=== PATIENT | female | born 2000 ===

== ENCOUNTER 2021-01-24 10:43 | Inpatient (IN) | payer OTHER ==
[2021-01-24] MEDS ORDERED: LACTATED RINGERS 1,000 ML ONE (11:24)
[2021-01-24] MEDS ORDERED: LACTATED RINGERS 1,000 ML IV SCH ×2 (11:30→14:30)
--- NOTE | 2021-01-24 13:13 | Ultrasound Report ---
ULTRASOUND OBSTETRIC INDICATION: Evaluate well-being. Clinical Gestational Age (GA): 39 weeks, 1 day TECHNIQUE: Transabdominal. COMPARISON: None available. FINDINGS: There is a single intrauterine . Biparietal Diameter = 8.8 cm = 35 weeks, 2 day(s). Head Circumference = 32.4 cm = 36 weeks, 5 day(s). Abdominal Circumference = 31.8 cm = 35 weeks, 5 day(s). Femur Length = 7.0 cm = 35 weeks, 5 day(s). Average Ultrasound Age (AUA) = 35 weeks, 6 day(s). Heart Rate: 137 beats per minute. Estimated Weight in grams (if calculated): 2760 Estimated Weight Growth Percentile (if calculated): 83 Position: cephalic. Cervix: closed. Length in cm (if measured): Not measured Placenta: maternal left and free of the os. Amniotic Fluid Volume: decreased Amniotic Fluid Index (REAGAN) in cm (if calculated): 3.9. Maternal Adnexa: No significant abnormality. IMPRESSION: 1. Single, living intrauterine with estimated sonographic age of 35 weeks, 6 day(s). 2. Decreased amniotic fluid volume with an REAGAN of 3.9 cm. Signer Name: Grant Smith MD Signed: 01/24/2021 1:09 PM Workstation Name: [id number]
[2021-01-24 13:54] LABS: Basophils # (Auto) 0.1 K/mm3 (0.0-0.1); Basophils % (Auto) 0.5 % (0.0-1.8); Eosinophils # (Auto) 0.1 K/mm3 (0.0-0.4); Eosinophils % (Auto) 0.6 % (0.0-4.3); Hematocrit 35.8 % (30.3-42.9); Hemoglobin 12.7 gm/dl (10.1-14.3); Lymphocytes # (Auto) 2.2 K/mm3 (1.2-5.4); Lymphocytes % (Auto) 17.7 % (13.4-35.0); Mean Corpuscular HGB Conc 35 % (30-34); Mean Corpuscular Volume 86 fl (79-97); Monocytes # (Auto) 0.8 K/mm3 (0.0-0.8); Monocytes % (Auto) 6.2 % (0.0-7.3); Red Blood Count 4.15 M/mm3 (3.65-5.03); Red Cell Distribution Width 13.4 % (13.2-15.2)
[2021-01-24 13:59] LABS: Bacteria,Urine 1+ /HPF (Negative); Bilirubin,Urine NEG (Negative); Blood,Urine MOD (Negative); Color,Urine Amber (Yellow); Mucus,Urine 1+ /HPF
[2021-01-24 14:06] LABS: Amphetamine Screen,Urine Negative; Benzodiazepines Screen,Urine Negative; Cannabinoid Screen,Urine Negative; Cocaine Screen,Urine Negative; Methadone Screen,Urine Negative; Opiate Screen,Urine Negative
[2021-01-24] MEDS ORDERED: ACETAMINOPHEN 325 MG TAB PO PRN (14:21)
[2021-01-24] MEDS ORDERED: ALUM-MAG HYDROXIDE-SIMETHICONE 200-200-20MG/5ML ORAL LIQD 30 ML PO PRN (14:21)
[2021-01-24] MEDS ORDERED: ONDANSETRON 4 MG/2 ML INJ IV PRN (14:21)
[2021-01-24] MEDS ORDERED: diphenhydrAMINE 25 MG CAP PO PRN (14:21)
[2021-01-24] MEDS ORDERED: MAGNESIUM HYDROXIDE (MOM) ORAL LIQD UDC PO PRN (14:21)
[2021-01-24] MEDS ORDERED: SIMETHICONE 80 MG CHEW TAB PO PRN (14:21)
[2021-01-24] MEDS ORDERED: WITCH HAZEL/ GLYCERIN PAD TP PRN (14:21)
[2021-01-24] MEDS ORDERED: DOCUSATE SODIUM 100 MG CAP PO PRN (14:21)
[2021-01-24 14:23] LABS: Hepatitis C Virus Antibody Non-Reactive (NonReactive)
--- NOTE | 2021-01-24 14:31 | History and Physical Report ---
History of Present Illness Date of examination: 01/24/21 Date of admission: 01/24/2021 Chief complaint: contractions and "piquito" leakage of clear fluid @8pm last night History of present illness: Pt presents with reports of unremarkeable care course and labs obtained in [place]; no records. Denies medical, OBGYN, and surgical history. Denies current allergies and home medications Past History Past Medical History: no pertinent history Past Surgical History: no surgical history Family/Genetic History: none Social history: other (portuguese speaking only, moved from [facility], no care in [place]) - Obstetrical History Expected Date of Delivery: 01/30/21 Actual Gestation: 39 Week(s) 1 Day(s) : 1 Para: 0 Hx # Term Pregnancies: 0 Number of Pregnancies: 0 Spontaneous Abortions: 0 Induced : 0 Number of Living Children: 0 Medications and Allergies Allergies Allergy/AdvReac Type Severity Reaction Status Date / Time No Known Allergies Allergy Verified 01/24/21 11:05 Home Medications Medication Instructions Recorded Confirmed Last Taken Type No Known Home Medications [No 01/24/21 01/24/21 Unknown History Reported Home Medications] Active Meds: Active Medications Lactated Ringer's (Lactated Ringers) 1,000 mls @ 999 mls/hr IV DIRECT ANTONELLA Last Admin: 01/24/21 11:31 Dose: 999 mls/hr Documented by: Review of Systems Genitourinary: leakage of fluid, contractions - Vital Signs Vital signs: Vital Signs Temp Pulse Resp BP 98.0 F 82 14 124/79 01/24/21 11:10 01/24/21 11:10 01/24/21 11:10 01/24/21 11:10 Temp Pulse Resp BP Pulse Ox 98.0 F 74 14 116/76 01/24/21 11:10 01/24/21 14:10 01/24/21 11:10 01/24/21 14:10 - Physical Exam Breasts: Positive: deferred Cardiovascular: Regular rate Lungs: Positive: Normal air movement Abdomen: Positive: normal appearance, soft Genitourinary (Female): Positive: normal external genitalia, normal perenium Vulva: both: normal Vagina: Positive: normal moisture Uterus: Positive: normal size, normal contour Anus/Rectum: Positive: normal perianal skin Extremities: Positive: normal - Obstetrical FHR: auscultation normal, category 1 Uterine Contraction Monitor Mode: External Cervical Dilatation: 2 (per Ghada MEEKS) Cervical Effacement Percentage: 60 station: -2 Uterine Contraction Pattern: Irregular Uterine Tone Measurement Phase: Resting Results Result Diagrams: 01/24/21 13:35 Abnormal lab results 01/24/21 01/24/21 Range/Units 13:35 13:43 WBC 12.2 H (4.5-11.0) K/mm3 MCHC 35 H (30-34) % Seg Neutrophils % 75.0 H (40.0-70.0) % Seg Neutrophils # 9.2 H (1.8-7.7) K/mm3 Urine WBC (Auto) 60.0 H (0.0-6.0) /HPF U Epithel Cells (Auto) 29.0 H (0-13.0) /HPF All other labs normal. Ultrasound: report reviewed Assessment and Plan Pt presents to triage with c/o contractions and LOF x1 gush clear fluid small "piquito" amount per pt @8pm on 01/23/21. CAT 1 FHT's with irregular contractions, SVE 2/60/-2, ROM plus negative, REAGAN 3.9cm and EGA 35w6d per US today for EDC of 02/22/21. Pt reports LMP 04/11/2020. Per pt- EDC 01/30/21 based off an ultrasound in [place] at about [address] Garcia made aware. Orders placed for observation. - Patient Problems (1) Oligohydramnios Current Visit: Yes Status: Acute (2) care insufficient Current Visit: Yes Status: Acute
[2021-01-24] MEDS ORDERED: PRENATAL VIT27-FE FUMARATE-FOLIC ACID VIT TAB PO SCH (15:00)
[2021-01-24 15:22] LABS: Platelet Count 154 K/mm3 (140-440)
[2021-01-24] MEDS ORDERED: NalbUPHINE 10 MG/1 ML INJ IV ONE (22:45)
--- NOTE | 2021-01-25 04:46 | Event Note ---
Date: 01/25/21 CNM called to bedside. Per RN report, significant change in SVE noted to 8cm. Order placed for GBS prophylaxis d/t unknown GBS result and pt in active labor. Pt reporting urge to push and SVE now 9.5/100%/+1. NICU team called for delivery
[2021-01-25] MEDS ORDERED: OXYTOCIN DRIP 30,000 MILLIUNITS/500 ML BAG IV ONE ×2 (05:17→15:21)
[2021-01-25] MEDS ORDERED: AMPICILLIN/NS 2 GM/100 ML 2 GM/100 ML BAG IV ONE (05:17)
[2021-01-25] MEDS ORDERED: LIDOCAINE (2%) 20 MG/1 ML VIAL 20 ML MDV INFILTRATI ONE (05:18)
[2021-01-25] MEDS ORDERED: MINERAL OIL 30 ML ORAL LIQD ONE (05:18)
[2021-01-25] MEDS ORDERED: OXYTOCIN 10 UNIT/1 ML INJ ONE (06:12)
--- NOTE | 2021-01-25 07:17 | Procedure Note ---
OB Delivery Note - Delivery Date of Delivery: 01/25/21 [employer]: RIVERA LEE Estimated blood loss: <100cc - Vaginal Delivery presentation: vertex Delivery position: OP Intrapartum events: no care (insufficient care) Delivery induction: none Delivery monitor: external FHT, external uterine Route of delivery: Delivery placenta: spontaneous Delivery cord: 3 umbilical vessels Episiotomy: none Delivery laceration: 2nd degree Delivery repair: vicryl Anesthesia: local Delivery comments: NELSY present for delivery Counts correct x2 Viable female delivered over intact perineum and given to SIZING SPONGER on mother's abdomen. 3 vessel umbilical cord immediately clamped and cut. Placenta delivered spontaneously and intact. IV not infusing per RN; Pitocin IM given. 2nd degree laceration repaired in usual fashion. EBL <100mL. Fundus firm 1 fingerbreadth below umbilicus with scant vaginal bleeding at this time. Pericare done. Mother left LDR stable. intubated and transported to NICU. - Infant A at 1 minute: 1 at 5 minutes: 6 (10 minute = 8) Infant Gender: Female (2951g)
[2021-01-25] MEDS ORDERED: MAGNESIUM HYDROXIDE (MOM) ORAL LIQD UDC PO PRN (10:06)
[2021-01-25] MEDS ORDERED: WITCH HAZEL/ GLYCERIN PAD TP PRN (10:06)
[2021-01-25] MEDS ORDERED: PROMETHAZINE 25 MG TAB PO PRN (10:06)
[2021-01-25] MEDS ORDERED: LANOLIN/ZINC/DIMETHICONE (LANSINOH) 7 GM TP PRN (10:06)
[2021-01-25] MEDS ORDERED: oxyCODONE /ACETAMINOPHEN 5-325MG TAB PO PRN (10:06)
[2021-01-25] MEDS ORDERED: BENZOCAINE/MENTHOL 20/0.5% TOP SPRAY 56 GM TP PRN (10:06)
[2021-01-25] MEDS ORDERED: ONDANSETRON 4 MG/2 ML INJ IV PRN (10:06)
[2021-01-25] MEDS ORDERED: ACETAMINOPHEN 325 MG TAB PO PRN (10:06)
[2021-01-25] MEDS ORDERED: diphenhydrAMINE 25 MG CAP PO PRN (10:06)
[2021-01-25] MEDS: PRENATAL VIT27-FE FUMARATE-FOLIC ACID VIT TAB PO SCH (12:37)
[2021-01-25] MEDS: DOCUSATE SODIUM 100 MG CAP PO SCH ×2 (12:37→23:30)
[2021-01-25] MEDS: IBUPROFEN 600 MG TAB PO SCH ×3 (12:37→23:30)
[2021-01-25] MEDS ORDERED: LACTATED RINGERS 2,000 ML ONE (13:42)
[2021-01-25] MEDS ORDERED: AMMONIA INHALANT IH ONE (15:04)
[2021-01-25] MEDS ORDERED: miSOPROStol 200 MCG TAB ONE (15:21)
[2021-01-25] MEDS ORDERED: METHYLERGONOVINE MALEATE 0.2 MG/ML VIAL IM ONE ×2 (15:32→16:23)
[2021-01-25] MEDS ORDERED: OXYTOCIN DRIP 30 UNITS/500 ML BAG IV SCH (16:00)
[2021-01-25] MEDS ORDERED: miSOPROStol 200 MCG TAB PR ONE (16:23)
--- NOTE | 2021-01-25 17:11 | Event Note ---
Date: 01/25/21 CNM called to BS by RN for c/o fainting while up to wheelchair. RN reports pt ambulated well and voided without difficulty previously; While up to wheelchair to go to NICU pt fainted and started having vaginal bleeding. RN reports 1 orange sized clot passed. Dr Garcia notified. STAT orders given. CNM to bedside- Pitocin infusing IV, fundus firm with small amount of vaginal bleeding noted s/p Methergine IM and Cytotec SD; no further clots expressed by CNM pleating supervisor. Perineum with edema. Pt denies pain. No SSx of hematoma noted. Ice pack request ed to perineum and new orders placed for Methergine PO. EBL reviewed and RN to weigh for QBL. Dr. Garcia at bedside and in agreement with POC. Continue pathway with close monitoring for changes in SSx, IV fluids with maintenance rate, and strict I&O.
[2021-01-25 17:48] LABS: Basophils # (Auto) 0.1 K/mm3 (0.0-0.1); Basophils % (Auto) 0.4 % (0.0-1.8); Eosinophils % (Auto) 0.2 % (0.0-4.3); Hematocrit 33.8 % (30.3-42.9); Hemoglobin 11.4 gm/dl (10.1-14.3); Lymphocytes # (Auto) 1.7 K/mm3 (1.2-5.4); Lymphocytes % (Auto) 10.7 % (13.4-35.0); Mean Corpuscular HGB Conc 34 % (30-34); Mean Corpuscular Volume 90 fl (79-97); Monocytes # (Auto) 1.2 K/mm3 (0.0-0.8); Monocytes % (Auto) 7.7 % (0.0-7.3); Platelet Count 205 K/mm3 (140-440); Red Blood Count 3.76 M/mm3 (3.65-5.03); Red Cell Distribution Width 13.5 % (13.2-15.2)
[2021-01-25] MEDS: METHYLERGONOVINE 0.2 MG TABLET PO SCH (18:29)
[2021-01-25 20:19] LABS: Hematocrit 29.4 % (30.3-42.9); Hemoglobin 10.2 gm/dl (10.1-14.3)
[2021-01-26] MEDS: METHYLERGONOVINE 0.2 MG TABLET PO SCH ×4 (01:39→22:09)
[2021-01-26] MEDS: IBUPROFEN 600 MG TAB PO SCH ×4 (05:24→22:09)
[2021-01-26] MEDS ORDERED: MEASLES, MUMPS & RUBELLA 12,500 UNIT/0.5 ML VACCINE SUB-Q ONE (06:00)
[2021-01-26] MEDS ORDERED: TETANUS,DIPH,PERTUSS(ACELL) VACCINE 0.5 ML SYRINGE IM ONE (06:00)
--- NOTE | 2021-01-26 06:06 | Progress Note ---
Assessment and Plan Used translate anton to communicate with pt and SO. All concerns addressed. Asking for d/c tomorrow. Pt w/o complaint. No further episodes of fainting, dizziness reported. VSS FF below umb Lochia scant Perineum intact. H&H 03/20. Doing well s/p vag delivery. P: Continue pathway Advance as tolerated. Plan d/c tomorrow. Subjective - Subjective Date of service: 01/26/21 (desires d/c tomorrow) Principal diagnosis: Day #1 s/p ; one episode fainting yesterday Patient reports: appetite normal, voiding normally, pain well controlled, ambulating normally [place]: doing well Objective - Vital Signs Latest vital signs: Vital Signs Temp Pulse Resp BP BP Pulse Ox Pulse Ox 01/26/21 05:11 79 107/66 99 01/26/21 01:15 98.2 F 113 H 18 95/47 99 01/25/21 19:30 99 01/25/21 16:25 96 H 21 120/83 99 01/25/21 16:01 92 H 23 130/91 100 01/25/21 15:50 99.5 F 107 H 20 119/77 99 01/25/21 15:48 109 H 99 01/25/21 15:22 86 111/59 98 01/25/21 15:05 64 105/72 94 01/25/21 12:06 98.3 F 100 H 20 103/68 98 01/25/21 09:00 99 01/25/21 08:50 97.9 F 76 18 114/76 01/25/21 07:55 85 104/63 01/25/21 07:53 110 H 100 01/25/21 07:48 100 H 99 01/25/21 07:43 88 99 01/25/21 07:40 87 103/58 01/25/21 07:38 103 H 99 01/25/21 07:33 85 99 01/25/21 07:28 100 H 99 01/25/21 07:25 106 H 109/59 01/25/21 07:23 100 H 99 01/25/21 07:18 91 H 99 01/25/21 07:13 112 H 99 01/25/21 07:10 104 H 105/57 01/25/21 07:08 105 H 99 01/25/21 07:03 105 H 99 01/25/21 06:58 91 H 99 01/25/21 06:55 93 H 106/59 01/25/21 06:53 104 H 99 01/25/21 06:48 127 H 100 01/25/21 06:43 86 100 01/25/21 06:40 93 H 109/55 01/25/21 06:38 82 100 01/25/21 06:33 83 99 01/25/21 06:28 98 H 100 01/25/21 06:23 93 H 100 01/25/21 06:18 92 H 99 01/25/21 06:13 157 H 99 01/25/21 06:08 129 H 98 01/25/21 06:03 134 H 136/80 99 Intake and Output 01/25/21 01/25/21 01/26/21 14:59 22:59 06:59 Intake Total 120 360 Output Total 200 500 Balance -80 -140 Intake: Oral 120 360 Output: Urine 200 500 Void 200 500 Other: Total, Intake Amount 120 240 Total, Output Amount 200 500 # Voids Void 1 1 Estimated Blood Loss 50 - Exam Breasts: Present: normal Cardiovascular: Present: Regular rate Lungs: Present: Normal air movement Abdomen: Present: normal appearance, soft Vulva: both: normal Uterus: Present: fundal height below umbilicus Extremities: Present: normal Deep Tendon Reflex Grade: Normal +2 Incision: Present: normal - Labs Labs: Abnormal lab results 01/25/21 01/25/21 01/25/21 Range/Units 15:07 17:13 19:25 WBC 16.0 H (4.5-11.0) K/mm3 Hct 29.4 L (30.3-42.9) % Lymph % (Auto) 10.7 L (13.4-35.0) % [place] % (Auto) 7.7 H (0.0-7.3) % [place] # (Auto) 1.2 H (0.0-0.8) K/mm3 Seg Neutrophils % 81.0 H (40.0-70.0) % Seg Neutrophils # 12.9 H (1.8-7.7) K/mm3 POC Glucose 110 H (70-105) mg/dL
[2021-01-26] MEDS: PRENATAL VIT27-FE FUMARATE-FOLIC ACID VIT TAB PO SCH (10:03)
[2021-01-26] MEDS: DOCUSATE SODIUM 100 MG CAP PO SCH ×2 (10:03→22:08)
[2021-01-27] MEDS: METHYLERGONOVINE 0.2 MG TABLET PO SCH ×2 (05:43→13:56)
[2021-01-27] MEDS: IBUPROFEN 600 MG TAB PO SCH ×2 (05:43→13:57)
--- NOTE | 2021-01-27 08:09 | Discharge Summary ---
Providers - Providers Date of Admission: 01/25/21 07:18 Date of discharge: 01/27/21 (desires d/c home) Attending physician: SHAHLA DUPREE 01/24/21 Consult to Case Management [CONS] Routine Services Needed at Discharge: Wage And Salary Specialist Notified:: CM Phone number called:: [phone] Was contact made?: No Time called:: 11:30 Comment:: unable to reach CM at both numbers 01/25/21 10:06 Consult to Network Strategist [CONS] Routine Reason For Exam: assistance with , SNS Primary care physician: SHAHLA DUPREE Hospitalization Reason for admission: Labor Condition: Good Pertinent studies: post delivery H&H 10.2/29.4 Procedures: Hospital course: uncomplicated and course Disposition: 01 HOME / SELF CARE / HOMELESS Final Discharge Diagnosis (Prints w/discharge instructions): vaginal Time spent for discharge: 15 - Discharge Diagnoses (1) (normal spontaneous vaginal delivery) Status: Acute Core Measure Documentation - Palliative Care Palliative Care/ Comfort Measures: Not Applicable - Core Measures Any of the following diagnoses?: none Exam - Constitutional Vitals: Temp Pulse Resp BP Pulse Ox 98.0 F 79 18 106/60 100 01/27/21 00:15 01/27/21 00:00 01/27/21 00:15 01/27/21 00:15 01/26/21 20:07 General appearance: Present: no acute distress, well-nourished - EENT Eyes: Present: PERRL ENT: hearing intact, clear oral mucosa - Neck Neck: Present: supple, normal ROM - Respiratory Respiratory effort: normal Respiratory: bilateral: CTA - Cardiovascular Rhythm: regular Heart Sounds: Absent: rub, click - Extremities Extremities: No edema - Abdominal General gastrointestinal: Present: soft, non-tender, non-distended, normal bowel sounds Female genitourinary: Present: normal - Integumentary Integumentary: Present: clear, warm, dry - Musculoskeletal Musculoskeletal: gait normal, strength equal bilaterally - Psychiatric Psychiatric: appropriate mood/affect, intact judgment & insight - Neurologic Neurologic: CNII-XII intact, moves all extremities - Additional findings Additional findings: perineum with small edema, healing well. lochia scant, fundus firm, bottle feeding. Plan Activity: no restrictions Diet: regular Follow up with: SHAHLA DUPREE MD [Primary Care Provider] - 6 Weeks (Felicidades!! Please call [phone] to schedule your visit. )
[2021-01-27] MEDS: PRENATAL VIT27-FE FUMARATE-FOLIC ACID VIT TAB PO SCH (10:27)
[2021-01-27] MEDS: DOCUSATE SODIUM 100 MG CAP PO SCH (10:27)
[2021-01-27 14:20] VITALS: BP 107/67
== END 2021-01-27 15:15 | disposition home or self-care (01) | DRG 807 ==
LOC: APU 10:43 → TRG 10:43 → APU 10:44 → UNDOADMOB 10:44 → OBSVTOIN 10:44 → INTOOBSV 10:44 → APU 10:45 → TRG 14:21 → LD 14:50 → APU 14:50 → LD 01-25 07:18 → OBSVTOIN 01-25 07:18 → OB 01-25 13:55
PROVIDERS: ADMIT Obstetrics & Gynecology; ATTEND Obstetrics & Gynecology
PROC: 10E0XZZ Delivery of Products of Conception, External Approach (ICD-10-PCS; principal; 2021-01-25)
PROC: 0KQM0ZZ Repair Perineum Muscle, Open Approach (ICD-10-PCS; 2021-01-25)
PROC: 3E0234Z Introduction of Serum, Toxoid and Vaccine into Muscle, Percutaneous Approach (ICD-10-PCS; 2021-01-26)
DX: O41.03X0 Oligohydramnios, third trimester, not applicable or unspecified (principal); Z37.0 Single live birth; Z3A.39 39 weeks gestation of pregnancy; Z20.822 Contact with and (suspected) exposure to COVID-19; Z23 Encounter for immunization; O70.1 Second degree perineal laceration during delivery
CPT/HCPCS: 36415; 76816; 80307; 81001; 82962; 84112; 85014; 85018; 85025; 86592; 86706; 86762; 86803; 86850; 86900; 86901; 87086; 87116; 87806; 88307; G0378; J2210; J2300; J2590; J7120; U0003